=== PATIENT | female | born 1985 | race Caucasian/White ===

== ENCOUNTER 2018-12-07 09:01 | Inpatient (IN) | payer OTHER ==
[2018-12-07] MEDS ORDERED: Sodium Chloride 0.9% 10 ML Syringe FLUSH PRN (09:35)
[2018-12-07] MEDS ORDERED: Nalbuphine 20 MG/ML 1 ML Syringe IVPUSH PRN (09:35)
[2018-12-07] MEDS ORDERED: Ampicillin 2 GM in Sodium Chloride 0.9% 100 ML IV ONE (09:35)
[2018-12-07] MEDS ORDERED: Oxytocin/Lactated Ringers 10 UNIT/1,000 ML BAG IV SCH ×2 (09:45)
[2018-12-07] MEDS ORDERED: fentaNYL 100 MCG/2 ML SDV EPIDUR PRN (10:20)
[2018-12-07] MEDS ORDERED: ePHEDrine 50 MG/ML SDV IVPUSH PRN (10:20)
[2018-12-07] MEDS ORDERED: fentaNYL/Bupivacaine-NS 2 MCG/ML-0.125%/PF 100 ML Bag EPIDUR PRN (10:20)
[2018-12-07] MEDS ORDERED: Ondansetron 4 MG/2 ML SDV IVPUSH PRN (10:20)
--- NOTE | 2018-12-07 10:26 | PCM.PREANE ---
Preanesthetic Assessment - Anesthesia/Transfusion/Family Hx Anesthesia History: Prior Anesthesia Reaction Type of Anesthesia Reaction: Excessive Nausea/Vomiting Family History of Anesthesia Reaction: No Transfusion History: No Prior Transfusion(s) Intubation History: Unknown - Review of Systems General: No Symptoms Pulmonary: No Symptoms Cardiovascular: No Symptoms Gastrointestinal: No Symptoms (GERD) Neurological: No Symptoms Other: Reports: None - Physical Assessment NPO Status Date: 12/07/18 NPO Status Time: 06:15 Pulse: 83 O2 Sat by Pulse Oximetry: 99 Respiratory Rate: 16 Blood Pressure: 114/77 Temperature: 37.1 C Height: 1.57 m Weight: 79.832 kg ASA Class: 2 Mental Status: Alert & Oriented x3 Airway Class: Mallampati = 2 Dentition: Reports: Normal Dentition (upper and lower permanant retainer), Caries Thyro-Mental Finger Breadths: 3 Mouth Opening Finger Breadths: 3 ROM/Head Extension: Full Lungs: Clear to Auscultation, Normal Respiratory Effort Cardiovascular: Regular Rate, Regular Rhythm, No Murmurs - Lab Values: Laboratory Last Values WBC 9.48 K/mm3 (3.98-10.04) 12/07/18 09:54 RBC 3.67 M/mm3 (3.98-5.22) L 12/07/18 09:54 Hgb 11.5 gm/L (11.2-15.7) D 12/07/18 09:54 Hct 34.7 % (34.1-44.9) 12/07/18 09:54 MCV 94.6 fl (79.4-94.8) 12/07/18 09:54 MCH 31.3 pg (25.6-32.2) 12/07/18 09:54 MCHC 33.1 g/dl (32.2-35.5) 12/07/18 09:54 RDW Std Deviation 45.6 fL (36.4-46.3) 12/07/18 09:54 Plt Count 297 K/mm3 (182-369) 12/07/18 09:54 MPV 10.3 fl (9.4-12.3) 12/07/18 09:54 Neut % (Auto) 61.1 % (34.0-71.1) 12/07/18 09:54 Lymph % (Auto) 29.3 % (19.3-51.7) 12/07/18 09:54 [place] % (Auto) 8.2 % (4.7-12.5) 12/07/18 09:54 Eos % (Auto) 0.6 (0.7-5.8) L 12/07/18 09:54 Baso % (Auto) 0.2 % (0.1-1.2) 12/07/18 09:54 Neut # (Auto) 5.78 K/mm3 (1.56-6.13) 12/07/18 09:54 Lymph # (Auto) 2.78 K/mm3 (1.18-3.74) 12/07/18 09:54 [place] # (Auto) 0.78 K/mm3 (0.24-0.36) H 12/07/18 09:54 Eos # (Auto) 0.06 K/mm3 (0.04-0.36) 12/07/18 09:54 Baso # (Auto) 0.02 K/mm3 (0.01-0.08) 12/07/18 09:54 Above labs reviewed and noted and within acceptable ranges to proceed with epidural if desired. 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: - Past Surgical History HEENT Surgical History: Reports: Tonsillectomy, Other (See Below) - SUBSTANCE USE Smoking Status *Q: Never Smoker Second Hand Smoke Exposure: No Recreational Drug Use History: No - HOME MEDS Home Medications: Home Meds Vits #93/Iron Fum/FA [ Formula Tablet] 12/07/18 [History] - CURRENT (IN HOUSE) MEDS Current Meds: Current Medications Ampicillin Sodium 1 gm/ Sodium (Chloride) 100 mls @ 200 mls/hr IV Q4H TRISH Lactated Ringer's (Ringers, Lactated) 1,000 mls @ 100 mls/hr IV ASDIRECTED TRISH Oxytocin/Lactated Ringer's (Pitocin In Lr 10 Units/1,000 Ml) 10 unit in 1,000 mls @ 500 mls/hr IV .CONTINUOUS TRISH Oxytocin/Lactated Ringer's (Pitocin In Lr 10 Units/1,000 Ml) 10 unit in 1,000 mls @ 12 mls/hr IV TITRATE TRISH; Protocol Nalbuphine HCl (Nubain) 10 mg IVPUSH Q2H PRN PRN Reason: pain Sodium Chloride (Saline Flush) 10 ml FLUSH ASDIRECTED PRN PRN Reason: Keep Vein Open Discontinued Medications Ampicillin Sodium 2 gm/ Sodium (Chloride) 100 mls @ 200 mls/hr IV ONETIME ONE Stop: 12/07/18 10:04
[2018-12-07] MEDS ORDERED: Phenylephrine 1 MG in Sodium Chloride 0.9% 10 ML IV SCH (10:30)
[2018-12-07] MEDS: Lactated Ringers 1,000 ML IV SCH ×4 (10:46→18:11)
[2018-12-07] MEDS: Ampicillin 1 GM in Sodium Chloride 0.9% 100 ML IV SCH (14:57)
--- NOTE | 2018-12-07 16:51 | PCM.LDHP ---
L&D History of Present Illness - General Date of Service: 12/07/18 Admit Problem/Dx: Patient Status Order with Admit Dx/Problem 12/07/18 09:35 Patient Status [ADT] Routine Admission Diagnosis/Problem Admission Diagnosis/Problem Source of Information: Patient History Limitations: Reports: No Limitations - History of Present Illness Introduction:: 33 year old female at 38w5d here with SROM clear fluid at about 8 am. PNC with myself without complications. - Related Data Allergies/Adverse Reactions: Allergies Allergy/AdvReac Type Severity Reaction Status Date / Time No Known Allergies Allergy Verified 12/07/18 09:08 Home Medications: Home Meds Vits #93/Iron Fum/FA [ Formula Tablet] 1 tab PO DAILY 12/07/18 [History] Past Medical History [employer] History: Reports: - Past Surgical History HEENT Surgical History: Reports: Tonsillectomy, Other (See Below) Social & Family History - Family History Family Medical History: Noncontributory - Tobacco Use Smoking Status *Q: Never Smoker Second Hand Smoke Exposure: No - Caffeine Use Caffeine Use: Reports: None - Recreational Drug Use Recreational Drug Use: No H&P Review of Systems - Review of Systems: Review Of Systems: See Below General: Reports: No Symptoms HEENT: Reports: No Symptoms Pulmonary: Reports: No Symptoms Cardiovascular: Reports: No Symptoms Gastrointestinal: Reports: No Symptoms Genitourinary: Reports: No Symptoms Musculoskeletal: Reports: No Symptoms Skin: Reports: No Symptoms Psychiatric: Reports: No Symptoms Neurological: Reports: No Symptoms Hematologic/Lymphatic: Reports: No Symptoms Immunologic: Reports: No Symptoms L&D Exam - Exam Exam: See Below - Vital Signs Vital Signs: Last Vital Signs Temp 37.1 C 12/07/18 10:28 Pulse 83 12/07/18 10:28 Resp 16 12/07/18 10:28 BP 114/77 12/07/18 10:28 Pulse Ox 99 12/07/18 10:28 Weight: 79.832 kg - OB Specific Contraction Intensity: Moderate to Strong Movement: Active Heart Tones: Present Heart Rate (FHR) Variability: Moderate (6-25 bmp) Presentation: Vertex - Morales Score Morales Score Cervix Position: Anterior Morales Score Consistency: Soft Morales Score Effacement: 51-70% Morales Score Dilation: 1-2 cm Morales Score Infant's Station: -2 Morales Score Total: 8 - Exam General: Alert, Oriented HEENT: PERRLA, Conjunctiva Clear, EACs Clear, EOMI, Hearing Intact, Mucosa Moist & [place], Nares Patent, Normal Nasal Septum, Posterior Pharynx Clear, TMs Clear Neck: Supple, Trachea Midline Lungs: Clear to Auscultation, Normal Respiratory Effort Cardiovascular: Regular Rate, Regular Rhythm GI/Abdominal Exam: Normal Bowel Sounds, Soft, Non-Tender, No Organomegaly, No Distention, No Abnormal Bruit, No Mass, Pelvis Stable Back Exam: Normal Inspection, Full Range of Motion Extremities: Normal Inspection, Normal Range of Motion, Non-Tender, No Pedal Edema, Normal Capillary Refill Skin: Warm, Dry, Intact Neurological: Cranial Nerves Intact, Reflexes Equal Bilateral Psychiatric: Alert, Normal Affect, Normal Mood - Patient Data Lab Results Last 24 hrs: Laboratory Results - last 24 hr 12/07/18 Range/Units 09:54 WBC 9.48 (3.98-10.04) K/mm3 RBC 3.67 L (3.98-5.22) M/mm3 Hgb 11.5 D (11.2-15.7) gm/L Hct 34.7 (34.1-44.9) % MCV 94.6 (79.4-94.8) fl MCH 31.3 (25.6-32.2) pg MCHC 33.1 (32.2-35.5) g/dl RDW Std Deviation 45.6 (36.4-46.3) fL Plt Count 297 (182-369) K/mm3 MPV 10.3 (9.4-12.3) fl Neut % (Auto) 61.1 (34.0-71.1) % Lymph % (Auto) 29.3 (19.3-51.7) % [place] % (Auto) 8.2 (4.7-12.5) % Eos % (Auto) 0.6 L (0.7-5.8) Baso % (Auto) 0.2 (0.1-1.2) % Neut # (Auto) 5.78 (1.56-6.13) K/mm3 Lymph # (Auto) 2.78 (1.18-3.74) K/mm3 [place] # (Auto) 0.78 H (0.24-0.36) K/mm3 Eos # (Auto) 0.06 (0.04-0.36) K/mm3 Baso # (Auto) 0.02 (0.01-0.08) K/mm3 Result Diagrams: 12/07/18 09:54 Problem List Initiated/Reviewed/Updated: Yes Orders Last 24hrs: Active Orders 24 hr Category Date Time Status Patient Status [ADT] Routine ADT 12/07/18 09:35 Active Activity as Tolerated [RC] PFP Care 12/07/18 09:35 Active Communication Order [RC] ASDIRECTED Care 12/07/18 09:35 Active Notify Provider [RC] ASDIRECTED Care 12/07/18 10:20 Active Notify Provider [RC] PFP Care 12/07/18 09:35 Active Notify Provider [RC] PRN Care 12/07/18 09:35 Active Oxygen Therapy [RC] ASDIRECTED Care 12/07/18 10:20 Active Peripheral IV Care [RC] . DIRECTED Care 12/07/18 09:36 Active Pulse Oximetry [RC] ASDIRECTED Care 12/07/18 10:20 Active Pump Management, Intrathecal [RC] ASDIRECTED Care 12/07/18 09:40 Active Urinary Catheter Assessment [RC] ASDIRECTED Care 12/07/18 09:35 Active Vital Signs [RC] PER UNIT ROUTINE Care 12/07/18 09:35 Active Regular Diet [DIET] Diet 12/07/18 Breakfast Active BLOOD BANK HOLD SPECIMEN [BBK] Stat Lab 12/07/18 09:35 Ordered RAPID PLASMA REAGIN,RPR [CHEM] Routine Lab 12/07/18 09:54 Received Ampicillin 1 gm Med 12/07/18 13:00 Active Sodium Chloride 0.9% [Normal Saline] 100 ml IV Q4H Lactated Ringers [Ringers, Lactated] 1,000 ml Med 12/07/18 09:45 Active IV ASDIRECTED Nalbuphine [Nubain] Med 12/07/18 09:35 Active 10 mg IVPUSH Q2H PRN Ondansetron [Zofran] Med 12/07/18 10:20 Active 4 mg IVPUSH ONETIME PRN Oxytocin/Lactated Ringers [Pitocin in LR 10 Units/1,000 Med 12/07/18 09:45 Active ML] 10 unit in 1,000 ml IV .CONTINUOUS Oxytocin/Lactated Ringers [Pitocin in LR 10 Units/1,000 Med 12/07/18 09:45 Active ML] 10 unit in 1,000 ml IV TITRATE Phenylephrine [Bk-Synephrine] 1 mg Med 12/07/18 10:30 Active Sodium Chloride 0.9% [Normal Saline] 10 ml IV TITRATE Sodium Chloride 0.9% [Saline Flush] Med 12/07/18 09:35 Active 10 ml FLUSH ASDIRECTED PRN ePHEDrine [ePHEDrine sulfate] Med 12/07/18 10:20 Active 5 mg IVPUSH ASDIRECTED PRN fentaNYL [Sublimaze] Med 12/07/18 10:20 Active 100 mcg EPIDUR Q3H PRN fentaNYL/Bupivacaine/NS/PF [ktzpfEWP-Ntkaf-LU 2 MCG/ML- Med 12/07/18 10:20 Active 0.125%] 100 ml EPIDUR ASDIRECTED PRN Electronic Heart Tones Ext w TOCO [WOMSER] Oth 12/07/18 09:35 Ordered Routine Electronic Heart Tones Internal [WOMSER] Per Unit Oth 12/07/18 09:35 Ordered Routine Peripheral IV Insertion Adult [OM.PC] Routine Oth 12/07/18 09:35 Ordered Resuscitation Status Routine Resus Stat 12/07/18 09:35 Ordered Medication Orders Ephedrine Sulfate (Ephedrine Sulfate) 5 mg IVPUSH ASDIRECTED PRN PRN Reason: Hypotension Stop: 12/07/18 23:00 Fentanyl (Sublimaze) 100 mcg EPIDUR Q3H PRN PRN Reason: Pain Stop: 12/07/18 23:00 Fentanyl/Bupivacaine HCl (Ukdyuagg-Cfalj-Xi 2 Mcg/Ml-0.125%) 100 ml EPIDUR ASDIRECTED PRN PRN Reason: Pain Stop: 12/07/18 23:00 Ampicillin Sodium 1 gm/ Sodium (Chloride) 100 mls @ 200 mls/hr IV Q4H [facility] Last Admin: 12/07/18 14:57 Dose: 200 mls/hr Lactated Ringer's (Ringers, Lactated) 1,000 mls @ 100 mls/hr IV ASDIRECTED [facility] Last Admin: 12/07/18 16:43 Dose: 100 mls/hr Infusion: 12/07/18 16:43 Dose: 100 mls/hr Admin: 12/07/18 16:42 Dose: 100 mls/hr Infusion: 12/07/18 16:42 Dose: 100 mls/hr Admin: 12/07/18 10:46 Dose: 100 mls/hr Oxytocin/Lactated Ringer's (Pitocin In Lr 10 Units/1,000 Ml) 10 unit in 1,000 mls @ 500 mls/hr IV .CONTINUOUS TRISH Oxytocin/Lactated Ringer's (Pitocin In Lr 10 Units/1,000 Ml) 10 unit in 1,000 mls @ 12 mls/hr IV TITRATE TRISH; Protocol Last Titration: 12/07/18 16:22 Dose: 7 munits/min, 42 mls/hr Titration: 12/07/18 15:33 Dose: 5 munits/min, 30 mls/hr Titration: 12/07/18 15:03 Dose: 10 munits/min, 60 mls/hr Titration: 12/07/18 13:00 Dose: 8 munits/min, 48 mls/hr Titration: 12/07/18 12:00 Dose: 6 munits/min, 36 mls/hr Titration: 12/07/18 11:30 Dose: 4 munits/min, 24 mls/hr Admin: 12/07/18 10:48 Dose: 2 munits/min, 12 mls/hr Phenylephrine HCl 1 mg/ Sodium (Chloride) 10.1 mls @ 1 mls/sec IV TITRATE TRISH; Protocol Stop: 12/07/18 23:00 Nalbuphine HCl (Nubain) 10 mg IVPUSH Q2H PRN PRN Reason: pain Ondansetron HCl (Zofran) 4 mg IVPUSH ONETIME PRN PRN Reason: Nausea/Vomiting Stop: 12/07/18 23:00 Sodium Chloride (Saline Flush) 10 ml FLUSH ASDIRECTED PRN PRN Reason: Keep Vein Open Assessment/Plan Comment:: Term SROM. Augment with pitocin. Anticipate unless otherwise indicated.
--- NOTE | 2018-12-07 19:34 | PCM.DEL ---
L & D Note - General Info Date of Service: 12/07/18 Mother's Due Date: 12/16/18 - Delivery Note Labor: Spontaneous, Augmented by Oxytocin Delivery Outcome: Livebirth (Male liveborn JEVON, nuchal cord 1, 12/07/18 at 1907 hrs. under epidural anesthesia over midline first-degree laceration. Weight 3220 g/7 pounds 1.6 ounces Apgars 8/9.) Delivery Method: Spontaneous Vaginal Delivery-Single Delivery Mode: Spontaneous Presentation: Left Occiput Anterior (JEVON) Nuchal Cord: Present (Times one tight reduced over the head without difficulty) Prep: Povidone-Iodine (Betadine Anesthesia Type: Combined Spinal Epidural Amniotic Fluid Description: Clear Episiotomy Type: None Laceration: 1st Degree Suture type: Other (Monocryl) Suture size: 3-0 (Times one) Placenta: Intact, Spontaneous (12/07/18 at 1910 hrs.) Cord: 3 Vessels Estimated Blood Loss: 250 Resuscitation Needed: No : Suctioned, Bulb Syringe, Stimulated, Warmed, Lizella Used, Warmer Used Provider: Shen Orozco Score 1 min: 8 Score 5 min: 9 - General Info Date of Service: 12/07/18 Functional Status: Reports: Pain Controlled - Review of Systems General: Reports: No Symptoms HEENT: Reports: No Symptoms Pulmonary: Reports: No Symptoms Cardiovascular: Reports: No Symptoms Gastrointestinal: Reports: No Symptoms Genitourinary: Reports: No Symptoms Musculoskeletal: Reports: No Symptoms Skin: Reports: No Symptoms Neurological: Reports: No Symptoms Psychiatric: Reports: No Symptoms - Patient Data Vitals - Most Recent: Last Vital Signs Temp 98.8 F 12/07/18 10:28 Pulse 83 12/07/18 10:28 Resp 16 12/07/18 10:28 BP 114/77 12/07/18 10:28 Pulse Ox 99 12/07/18 10:28 Weight - Most Recent: 176 lb I&O - Last 24 Hours: Intake & Output 12/07/18 12/07/18 12/07/18 06:59 14:59 22:59 Intake Total 100 2000 Balance 100 2000 Lab Results Last 24 Hours: Laboratory Results - last 24 hr 12/07/18 12/07/18 Range/Units 09:54 09:54 WBC 9.48 (3.98-10.04) K/mm3 RBC 3.67 L (3.98-5.22) M/mm3 Hgb 11.5 D (11.2-15.7) gm/L Hct 34.7 (34.1-44.9) % MCV 94.6 (79.4-94.8) fl MCH 31.3 (25.6-32.2) pg MCHC 33.1 (32.2-35.5) g/dl RDW Std Deviation 45.6 (36.4-46.3) fL Plt Count 297 (182-369) K/mm3 MPV 10.3 (9.4-12.3) fl Neut % (Auto) 61.1 (34.0-71.1) % Lymph % (Auto) 29.3 (19.3-51.7) % [place] % (Auto) 8.2 (4.7-12.5) % Eos % (Auto) 0.6 L (0.7-5.8) Baso % (Auto) 0.2 (0.1-1.2) % Neut # (Auto) 5.78 (1.56-6.13) K/mm3 Lymph # (Auto) 2.78 (1.18-3.74) K/mm3 [place] # (Auto) 0.78 H (0.24-0.36) K/mm3 Eos # (Auto) 0.06 (0.04-0.36) K/mm3 Baso # (Auto) 0.02 (0.01-0.08) K/mm3 RPR Non-reactive (NONREACTIVE) Med Orders - Current: Current Medications Ephedrine Sulfate (Ephedrine Sulfate) 5 mg IVPUSH ASDIRECTED PRN PRN Reason: Hypotension Stop: 12/07/18 23:00 Fentanyl (Sublimaze) 100 mcg EPIDUR Q3H PRN PRN Reason: Pain Stop: 12/07/18 23:00 Last Admin: 12/07/18 18:16 Dose: 100 mcg Fentanyl/Bupivacaine HCl (Rwtfugol-Vevcj-Tk 2 Mcg/Ml-0.125%) 100 ml EPIDUR ASDIRECTED PRN PRN Reason: Pain Stop: 12/07/18 23:00 Last Admin: 12/07/18 18:15 Dose: 100 ml Ampicillin Sodium 1 gm/ Sodium (Chloride) 100 mls @ 200 mls/hr IV Q4H TRISH Last Admin: 12/07/18 14:57 Dose: 200 mls/hr Lactated Ringer's (Ringers, Lactated) 1,000 mls @ 100 mls/hr IV ASDIRECTED TRISH Last Admin: 12/07/18 18:11 Dose: 100 mls/hr Oxytocin/Lactated Ringer's (Pitocin In Lr 10 Units/1,000 Ml) 10 unit in 1,000 mls @ 500 mls/hr IV .CONTINUOUS TRISH Oxytocin/Lactated Ringer's (Pitocin In Lr 10 Units/1,000 Ml) 10 unit in 1,000 mls @ 12 mls/hr IV TITRATE TRISH; Protocol Last Titration: 12/07/18 16:22 Dose: 7 munits/min, 42 mls/hr Phenylephrine HCl 1 mg/ Sodium (Chloride) 10.1 mls @ 1 mls/sec IV TITRATE TRISH; Protocol Stop: 12/07/18 23:00 Nalbuphine HCl (Nubain) 10 mg IVPUSH Q2H PRN PRN Reason: pain Ondansetron HCl (Zofran) 4 mg IVPUSH ONETIME PRN PRN Reason: Nausea/Vomiting Stop: 12/07/18 23:00 Sodium Chloride (Saline Flush) 10 ml FLUSH ASDIRECTED PRN PRN Reason: Keep Vein Open Discontinued Medications Ampicillin Sodium 2 gm/ Sodium (Chloride) 100 mls @ 200 mls/hr IV ONETIME ONE Stop: 12/07/18 10:04 Last Admin: 12/07/18 10:45 Dose: 200 mls/hr - Exam General: Alert, Oriented HEENT: Pupils Equal, Mucous Membr. Moist/[place] Neck: Supple Lungs: Clear to Auscultation, Normal Respiratory Effort Cardiovascular: Regular Rate, Regular Rhythm GI/Abdominal Exam: Normal Bowel Sounds, Soft, Non-Tender Extremities: Normal Inspection, Normal Range of Motion, Non-Tender, No Pedal Edema, Normal Capillary Refill Skin: Warm, Dry, Intact Psy/Mental Status: Alert, Normal Affect, Normal Mood - Problem List & Annotations (1) Cord around neck, with compression, complicating labor and delivery, delivered SNOMED Code(s): 323116483, 882011436 Code(s): O69.1XX0 - LABOR AND DELIVERY COMP BY CORD AROUND NECK, W COMPRSN, UNSP Status: Acute Current Visit: Yes (2) First degree perineal laceration during delivery SNOMED Code(s): 118603287 Code(s): O70.0 - FIRST DEGREE PERINEAL LACERATION DURING DELIVERY Status: Acute Current Visit: Yes (3) 38 weeks gestation of SNOMED Code(s): 81894066 Code(s): Z3A.38 - 38 WEEKS GESTATION OF Status: Acute Current Visit: Yes - Problem List Review Problem List Initiated/Reviewed/Updated: No - Assessment Assessment:: On transvaginal delivery see above note - Plan Plan:: Term SROM. Augment with pitocin. Anticipate unless otherwise indicated.
[2018-12-07] MEDS ORDERED: Acetaminophen 325 MG Tab PO PRN (20:21)
[2018-12-07] MEDS ORDERED: Witch Hazel Medicated Pads 40/Jar TOP PRN (20:21)
[2018-12-07] MEDS ORDERED: Lanolin 100% Cream 7 GM Tube TOP PRN (20:21)
[2018-12-07] MEDS ORDERED: Docusate Sodium 100 MG Cap PO PRN (20:21)
[2018-12-07] MEDS ORDERED: Benzocaine/Menthol 20%-0.5% Spray 56 GM Canister TOP PRN (20:21)
[2018-12-07] MEDS: Ibuprofen 600 MG Tab PO PRN (21:20)
[2018-12-08] MEDS: Ampicillin 1 GM in Sodium Chloride 0.9% 100 ML IV SCH (00:30)
[2018-12-08] MEDS: Ibuprofen 600 MG Tab PO PRN ×2 (03:17→13:53)
--- NOTE | 2018-12-08 08:43 | PCM.SN ---
- Free Text/Narrative Note: day 1 No heavy vaginal bleeding no leg cramping uterus involuting normally probably home tomorrow.
[2018-12-09] MEDS: Ibuprofen 600 MG Tab PO PRN (02:49)
[2018-12-09 08:01] VITALS: BP 108/64
--- NOTE | 2018-12-09 10:49 | PCM.DCSUM1 ---
Discharge Summary - Hospital Course Free Text/Narrative:: [facility] LIVE L/D Delivery Note Patient Name: ALBERT VILLEGAS Date of : 89 Patient Status: Inpatient Attending Provider: Ashanti Jackson Date: 12/07/18 19:29 Initialization Date: 12/07/18 19:29 L & D Note - General Info Date of Service: 12/07/18 Mother's Due Date: 12/16/18 - Delivery Note Labor: Spontaneous, Augmented by Oxytocin Delivery Outcome: Livebirth (Male liveborn JEVON, nuchal cord 1, 12/07/18 at 1907 hrs. under epidural anesthesia over midline first-degree laceration. Weight 3220 g/7 pounds 1.6 ounces Apgars 8/9.) Infant Delivery Method: Spontaneous Vaginal Delivery-Single Infant Delivery Mode: Spontaneous Presentation: Left Occiput Anterior (JEVON) Nuchal Cord: Present (Times one tight reduced over the head without difficulty) Prep: Povidone-Iodine (Betadine Anesthesia Type: Combined Spinal Epidural Amniotic Fluid Description: Clear Episiotomy Type: None Laceration: 1st Degree Suture type: Other (Monocryl) Suture size: 3-0 (Times one) Placenta: Intact, Spontaneous (12/07/18 at 1910 hrs.) Cord: 3 Vessels Estimated Blood Loss: 250 Resuscitation Needed: No Benedict: Suctioned, Bulb Syringe, Stimulated, Warmed, [place] Used, Warmer Used Provider: Shen Orozco Score 1 min: 8 Score 5 min: 9 - General Info Date of Service: 12/07/18 Functional Status: Reports: Pain Controlled - Review of Systems General: Reports: No Symptoms HEENT: Reports: No Symptoms Pulmonary: Reports: No Symptoms Cardiovascular: Reports: No Symptoms Gastrointestinal: Reports: No Symptoms Genitourinary: Reports: No Symptoms Musculoskeletal: Reports: No Symptoms Skin: Reports: No Symptoms Neurological: Reports: No Symptoms Psychiatric: Reports: No Symptoms - Patient Data Vitals - Most Recent: Last Vital Signs Temp 98.8 F 12/07/18 10:28 Pulse 83 12/07/18 10:28 Resp 16 12/07/18 10:28 BP 114/77 12/07/18 10:28 Pulse Ox 99 12/07/18 10:28 Weight - Most Recent: 176 lb I&O - Last 24 Hours: Intake & Output 12/07/18 12/07/18 12/07/18 06:59 14:59 22:59 Intake Total 100 2000 Balance 100 2000 Lab Results Last 24 Hours: Laboratory Results - last 24 hr 12/07/18 12/07/18 Range/Units 09:54 09:54 WBC 9.48 (3.98-10.04) K/mm3 RBC 3.67 L (3.98-5.22) M/mm3 Hgb 11.5 D (11.2-15.7) gm/L Hct 34.7 (34.1-44.9) % MCV 94.6 (79.4-94.8) fl MCH 31.3 (25.6-32.2) pg MCHC 33.1 (32.2-35.5) g/dl RDW Std Deviation 45.6 (36.4-46.3) fL Plt Count 297 (182-369) K/mm3 MPV 10.3 (9.4-12.3) fl Neut % (Auto) 61.1 (34.0-71.1) % Lymph % (Auto) 29.3 (19.3-51.7) % [place] % (Auto) 8.2 (4.7-12.5) % Eos % (Auto) 0.6 L (0.7-5.8) Baso % (Auto) 0.2 (0.1-1.2) % Neut # (Auto) 5.78 (1.56-6.13) K/mm3 Lymph # (Auto) 2.78 (1.18-3.74) K/mm3 [place] # (Auto) 0.78 H (0.24-0.36) K/mm3 Eos # (Auto) 0.06 (0.04-0.36) K/mm3 Baso # (Auto) 0.02 (0.01-0.08) K/mm3 RPR Non-reactive (NONREACTIVE) Med Orders - Current: Current Medications Ephedrine Sulfate (Ephedrine Sulfate) 5 mg IVPUSH ASDIRECTED PRN PRN Reason: Hypotension Stop: 12/07/18 23:00 Fentanyl (Sublimaze) 100 mcg EPIDUR Q3H PRN PRN Reason: Pain Stop: 12/07/18 23:00 Last Admin: 12/07/18 18:16 Dose: 100 mcg Fentanyl/Bupivacaine HCl (Uphypann-Kigsc-Fn 2 Mcg/Ml-0.125%) 100 ml EPIDUR ASDIRECTED PRN PRN Reason: Pain Stop: 12/07/18 23:00 Last Admin: 12/07/18 18:15 Dose: 100 ml Ampicillin Sodium 1 gm/ Sodium (Chloride) 100 mls @ 200 mls/hr IV Q4H TRISH Last Admin: 12/07/18 14:57 Dose: 200 mls/hr Lactated Ringer's (Ringers, Lactated) 1,000 mls @ 100 mls/hr IV ASDIRECTED TRISH Last Admin: 12/07/18 18:11 Dose: 100 mls/hr Oxytocin/Lactated Ringer's (Pitocin In Lr 10 Units/1,000 Ml) 10 unit in 1,000 mls @ 500 mls/hr IV .CONTINUOUS TRISH Oxytocin/Lactated Ringer's (Pitocin In Lr 10 Units/1,000 Ml) 10 unit in 1,000 mls @ 12 mls/hr IV TITRATE TRISH; Protocol Last Titration: 12/07/18 16:22 Dose: 7 munits/min, 42 mls/hr Phenylephrine HCl 1 mg/ Sodium (Chloride) 10.1 mls @ 1 mls/sec IV TITRATE TRISH; Protocol Stop: 12/07/18 23:00 Nalbuphine HCl (Nubain) 10 mg IVPUSH Q2H PRN PRN Reason: pain Ondansetron HCl (Zofran) 4 mg IVPUSH ONETIME PRN PRN Reason: Nausea/Vomiting Stop: 12/07/18 23:00 Sodium Chloride (Saline Flush) 10 ml FLUSH ASDIRECTED PRN PRN Reason: Keep Vein Open Discontinued Medications Ampicillin Sodium 2 gm/ Sodium (Chloride) 100 mls @ 200 mls/hr IV ONETIME ONE Stop: 12/07/18 10:04 Last Admin: 12/07/18 10:45 Dose: 200 mls/hr - Exam General: Alert, Oriented HEENT: Pupils Equal, Mucous Membr. Moist/[place] Neck: Supple Lungs: Clear to Auscultation, Normal Respiratory Effort Cardiovascular: Regular Rate, Regular Rhythm GI/Abdominal Exam: Normal Bowel Sounds, Soft, Non-Tender Extremities: Normal Inspection, Normal Range of Motion, Non-Tender, No Pedal Edema, Normal Capillary Refill Skin: Warm, Dry, Intact Psy/Mental Status: Alert, Normal Affect, Normal Mood - Problem List & Annotations (1) Cord around neck, with compression, complicating labor and delivery, delivered SNOMED Code(s): 861477530, 495585060 Code(s): O69.1XX0 - LABOR AND DELIVERY COMP BY CORD AROUND NECK, W COMPRSN, UNSP Status: Acute Current Visit: Yes (2) First degree perineal laceration during delivery SNOMED Code(s): 798662171 Code(s): O70.0 - FIRST DEGREE PERINEAL LACERATION DURING DELIVERY Status: Acute Current Visit: Yes (3) 38 weeks gestation of SNOMED Code(s): 07039087 Code(s): Z3A.38 - 38 WEEKS GESTATION OF Status: Acute Current Visit: Yes - Problem List Review Problem List Initiated/Reviewed/Updated: No - Assessment Assessment:: On transvaginal delivery see above note - Plan Plan:: Term SROM. Augment with pitocin. Anticipate unless otherwise indicated. HPI Initial Comments: [facility] LIVE L/D Delivery Note Patient Name: ALBERT VILLEGAS Date of : 89 Patient Status: Inpatient Attending Provider: Ashanti Jackson Date: 12/07/18 19:29 Initialization Date: 12/07/18 19:29 L & D Note - General Info Date of Service: 12/07/18 Mother's Due Date: 12/16/18 - Delivery Note Labor: Spontaneous, Augmented by Oxytocin Delivery Outcome: Livebirth (Male liveborn JEVON, nuchal cord 1, 12/07/18 at 1907 hrs. under epidural anesthesia over midline first-degree laceration. Weight 3220 g/7 pounds 1.6 ounces Apgars 8/9.) Infant Delivery Method: Spontaneous Vaginal Delivery-Single Delivery Mode: Spontaneous Presentation: Left Occiput Anterior (JEVON) Nuchal Cord: Present (Times one tight reduced over the head without difficulty) Prep: Povidone-Iodine (Betadine Anesthesia Type: Combined Spinal Epidural Amniotic Fluid Description: Clear Episiotomy Type: None Laceration: 1st Degree Suture type: Other (Monocryl) Suture size: 3-0 (Times one) Placenta: Intact, Spontaneous (12/07/18 at 1910 hrs.) Cord: 3 Vessels Estimated Blood Loss: 250 Resuscitation Needed: No : Suctioned, Bulb Syringe, Stimulated, Warmed, [place] Used, Warmer Used Provider: Shen Orozco Score 1 min: 8 Score 5 min: 9 - General Info Date of Service: 12/07/18 Functional Status: Reports: Pain Controlled - Review of Systems General: Reports: No Symptoms HEENT: Reports: No Symptoms Pulmonary: Reports: No Symptoms Cardiovascular: Reports: No Symptoms Gastrointestinal: Reports: No Symptoms Genitourinary: Reports: No Symptoms Musculoskeletal: Reports: No Symptoms Skin: Reports: No Symptoms Neurological: Reports: No Symptoms Psychiatric: Reports: No Symptoms - Patient Data Vitals - Most Recent: Last Vital Signs Temp 98.8 F 12/07/18 10:28 Pulse 83 12/07/18 10:28 Resp 16 12/07/18 10:28 BP 114/77 12/07/18 10:28 Pulse Ox 99 12/07/18 10:28 Weight - Most Recent: 176 lb I&O - Last 24 Hours: Intake & Output 12/07/18 12/07/18 12/07/18 06:59 14:59 22:59 Intake Total 100 2000 Balance 100 2000 Lab Results Last 24 Hours: Laboratory Results - last 24 hr 12/07/18 12/07/18 Range/Units 09:54 09:54 WBC 9.48 (3.98-10.04) K/mm3 RBC 3.67 L (3.98-5.22) M/mm3 Hgb 11.5 D (11.2-15.7) gm/L Hct 34.7 (34.1-44.9) % MCV 94.6 (79.4-94.8) fl MCH 31.3 (25.6-32.2) pg MCHC 33.1 (32.2-35.5) g/dl RDW Std Deviation 45.6 (36.4-46.3) fL Plt Count 297 (182-369) K/mm3 MPV 10.3 (9.4-12.3) fl Neut % (Auto) 61.1 (34.0-71.1) % Lymph % (Auto) 29.3 (19.3-51.7) % [place] % (Auto) 8.2 (4.7-12.5) % Eos % (Auto) 0.6 L (0.7-5.8) Baso % (Auto) 0.2 (0.1-1.2) % Neut # (Auto) 5.78 (1.56-6.13) K/mm3 Lymph # (Auto) 2.78 (1.18-3.74) K/mm3 [place] # (Auto) 0.78 H (0.24-0.36) K/mm3 Eos # (Auto) 0.06 (0.04-0.36) K/mm3 Baso # (Auto) 0.02 (0.01-0.08) K/mm3 RPR Non-reactive (NONREACTIVE) Med Orders - Current: Current Medications Ephedrine Sulfate (Ephedrine Sulfate) 5 mg IVPUSH ASDIRECTED PRN PRN Reason: Hypotension Stop: 12/07/18 23:00 Fentanyl (Sublimaze) 100 mcg EPIDUR Q3H PRN PRN Reason: Pain Stop: 12/07/18 23:00 Last Admin: 12/07/18 18:16 Dose: 100 mcg Fentanyl/Bupivacaine HCl (Zibizkpa-Ecfys-Yv 2 Mcg/Ml-0.125%) 100 ml EPIDUR ASDIRECTED PRN PRN Reason: Pain Stop: 12/07/18 23:00 Last Admin: 12/07/18 18:15 Dose: 100 ml Ampicillin Sodium 1 gm/ Sodium (Chloride) 100 mls @ 200 mls/hr IV Q4H TRISH Last Admin: 12/07/18 14:57 Dose: 200 mls/hr Lactated Ringer's (Ringers, Lactated) 1,000 mls @ 100 mls/hr IV ASDIRECTED TRISH Last Admin: 12/07/18 18:11 Dose: 100 mls/hr Oxytocin/Lactated Ringer's (Pitocin In Lr 10 Units/1,000 Ml) 10 unit in 1,000 mls @ 500 mls/hr IV .CONTINUOUS TRISH Oxytocin/Lactated Ringer's (Pitocin In Lr 10 Units/1,000 Ml) 10 unit in 1,000 mls @ 12 mls/hr IV TITRATE TRISH; Protocol Last Titration: 12/07/18 16:22 Dose: 7 munits/min, 42 mls/hr Phenylephrine HCl 1 mg/ Sodium (Chloride) 10.1 mls @ 1 mls/sec IV TITRATE TRISH; Protocol Stop: 12/07/18 23:00 Nalbuphine HCl (Nubain) 10 mg IVPUSH Q2H PRN PRN Reason: pain Ondansetron HCl (Zofran) 4 mg IVPUSH ONETIME PRN PRN Reason: Nausea/Vomiting Stop: 12/07/18 23:00 Sodium Chloride (Saline Flush) 10 ml FLUSH ASDIRECTED PRN PRN Reason: Keep Vein Open Discontinued Medications Ampicillin Sodium 2 gm/ Sodium (Chloride) 100 mls @ 200 mls/hr IV ONETIME ONE Stop: 12/07/18 10:04 Last Admin: 12/07/18 10:45 Dose: 200 mls/hr - Exam General: Alert, Oriented HEENT: Pupils Equal, Mucous Membr. Moist/[place] Neck: Supple Lungs: Clear to Auscultation, Normal Respiratory Effort Cardiovascular: Regular Rate, Regular Rhythm GI/Abdominal Exam: Normal Bowel Sounds, Soft, Non-Tender Extremities: Normal Inspection, Normal Range of Motion, Non-Tender, No Pedal Edema, Normal Capillary Refill Skin: Warm, Dry, Intact Psy/Mental Status: Alert, Normal Affect, Normal Mood - Problem List & Annotations (1) Cord around neck, with compression, complicating labor and delivery, delivered SNOMED Code(s): 644322500, 224667119 Code(s): O69.1XX0 - LABOR AND DELIVERY COMP BY CORD AROUND NECK, W COMPRSN, UNSP Status: Acute Current Visit: Yes (2) First degree perineal laceration during delivery SNOMED Code(s): 153741339 Code(s): O70.0 - FIRST DEGREE PERINEAL LACERATION DURING DELIVERY Status: Acute Current Visit: Yes (3) 38 weeks gestation of SNOMED Code(s): 24843726 Code(s): Z3A.38 - 38 WEEKS GESTATION OF Status: Acute Current Visit: Yes - Problem List Review Problem List Initiated/Reviewed/Updated: No - Assessment Assessment:: On transvaginal delivery see above note - Plan Plan:: Term SROM. Augment with pitocin. Anticipate unless otherwise indicated. Brief History: [facility] LIVE . L/D Delivery Note. Patient Name: ALBERT VILLEGAS Record Number: [id number]. Date of : Patient Status: Inpatient. Attending Provider: Ashanti Jacksonunt Number: [id number]. Date: 12/07/18 19:29Initialization Date: 12/07/18 19:29. L & D Note. - General Info. Date of Service: 12/07/18. Mother's Due Date: 12/16/18. - Delivery Note. Labor: Spontaneous, Augmented by Oxytocin. Delivery Outcome: Livebirth (Male liveborn JEVON, nuchal cord 1, at 1907 hrs. under epidural anesthesia over midline first-degree laceration. Weight 3220 g/7 pounds 1.6 ounces Apgars 8/9.). Infant Delivery Method: Spontaneous Vaginal Delivery-Single. Infant Delivery Mode: Spontaneous. Presentation: Left Occiput Anterior (JEVON). Nuchal Cord: Present (Times one tight reduced over the head without difficulty). Prep: Povidone-Iodine (Betadine. Anesthesia Type: Combined Spinal Epidural. Amniotic Fluid Description: Clear. Episiotomy Type: None. Laceration: 1st Degree. Suture type: Other (Monocryl). Suture size: 3-0 (Times one). Placenta : Intact, Spontaneous (12/07/18 at 1910 hrs.). Cord: 3 Vessels. Estimated Blood Loss: 250. Resuscitation Needed: No. Benedict: Suctioned, Bulb Syringe, Stimulated, Warmed, [place] Used, Warmer Used. Provider: Shen Orozco. Score 1 min: 8. Score 5 min: 9. - General Info. Date of Service: 12/07/18. Functional Status: Reports: Pain Controlled. - Review of Systems. General: Reports: No Symptoms. HEENT: Reports: No Symptoms. Pulmonary: Reports: No Symptoms. Cardiovascular: Reports: No Symptoms. Gastrointestinal: Reports: No Symptoms. Genitourinary: Reports: No Symptoms. Musculoskeletal: Reports: No Symptoms. Skin: Reports: No Symptoms. Neurological: Reports: No Symptoms. Psychiatric: Reports: No Symptoms. - Patient Data. Vitals - Most Recent: Last Vital Signs. Temp 98.8 F 12/07/18 10:28. Pulse 83 12/07/18 10:28. Resp 16 12/07/18 10:28. BP 114/77 10:28. Pulse Ox 99 12/07/18 10:28. Weight - Most Recent: 176 lb. I&O - Last 24 Hours: Intake & Output. 12/07/1904/. 06:5914:5922:59. Intake [id number]. [id number]. Lab Results Last 24 Hours: Laboratory Results - last 24 hr. 12/07/1904Range/Units. 09:5409:54. WBC 9.48 (3.98 -10.04) K/mm3. RBC 3.67 L (3.98-5.22) M/mm3. Hgb 11.5 D (11.2-15.7) gm/L. Hct 34.7 (34.1-44.9) %. MCV 94.6 (79.4-94.8) fl. MCH 31.3 (25.6-32.2) pg. MCHC 33.1 (32.2-35.5) g/dl. RDW Std Deviation 45.6 (36.4-46.3) fL. Plt Count 297 (182-369) K/mm3. MPV 10.3 (9.4-12.3) fl. Neut % (Auto) 61.1 (34.0- 71.1) %. Lymph % (Auto) 29.3 (19.3-51.7) %. [place] % (Auto) 8.2 (4.7-12.5) % . Eos % (Auto) 0.6 L (0.7-5.8). Baso % (Auto) 0.2 (0.1-1.2) %. Neut # (Auto ) 5.78 (1.56-6.13) K/mm3. Lymph # (Auto) 2.78 (1.18-3.74) K/mm3. [place] # ( Auto) 0.78 H (0.24-0.36) K/mm3. Eos # (Auto) 0.06 (0.04-0.36) K/mm3. Baso # (Auto) 0.02 (0.01-0.08) K/mm3. RPR Non-reactive (NONREACTIVE). Med Orders - Current: Current Medications. Ephedrine Sulfate (Ephedrine Sulfate) 5 mg IVPUSH ASDIRECTED PRN. PRN Reason: Hypotension. Stop: 12/07/18 23:00. Fentanyl (Sublimaze) 100 mcg EPIDUR Q3H PRN. PRN Reason: Pain. Stop: 23:00. Last Admin: 12/07/18 18:16 Dose: 100 mcg. Fentanyl/Bupivacaine HCl (Ldeupqig-Djldw-Ca 2 Mcg/Ml-0.125%) 100 ml EPIDUR ASDIRECTED PRN. PRN Reason: Pain. Stop: 12/07/18 23:00. Last Admin: 12/07/18 18:15 Dose: 100 ml. Ampicillin Sodium 1 gm/ Sodium (Chloride) 100 mls @ 200 mls/hr IV Q4H TRISH. Last Admin: 12/07/18 14:57 Dose: 200 mls/hr. Lactated Ringer's (Ringers, Lactated) 1,000 mls @ 100 mls/hr IV ASDIRECTED TRISH. Last Admin: 12/07/18 18: 11 Dose: 100 mls/hr. Oxytocin/Lactated Ringer's (Pitocin In Lr 10 Units/1,000 Ml) 10 unit in 1,000 mls @ 500 mls/hr IV .CONTINUOUS TRISH. Oxytocin/Lactated Ringer's (Pitocin In Lr 10 Units/1,000 Ml) 10 unit in 1,000 mls @ 12 mls/hr IV TITRATE TRISH; Protocol. Last Titration: 12/07/18 16:22 Dose: 7 munits/min, 42 mls/hr. Phenylephrine HCl 1 mg/ Sodium (Chloride) 10.1 mls @ 1 mls/sec IV TITRATE TRISH; Protocol. Stop: 12/07/18 23:00. Nalbuphine HCl (Nubain) 10 mg IVPUSH Q2H PRN. PRN Reason: pain. Ondansetron HCl (Zofran) 4 mg IVPUSH ONETIME PRN. PRN Reason: Nausea/Vomiting. Stop: 12/07/18 23:00. Sodium Chloride (Saline Flush) 10 ml FLUSH ASDIRECTED PRN. PRN Reason: Keep Vein Open. Discontinued Medications. Ampicillin Sodium 2 gm/ Sodium (Chloride) 100 mls @ 200 mls/hr IV ONETIME ONE. Stop: 12/07/18 10:04. Last Admin: 10:45 Dose: 200 mls/hr. - Exam. General: Alert, Oriented. HEENT: Pupils Equal, Mucous Membr. Moist/[place]. Neck: Supple. Lungs: Clear to Auscultation, Normal Respiratory Effort. Cardiovascular: Regular Rate, Regular Rhythm. GI/ Abdominal Exam: Normal Bowel Sounds, Soft, Non-Tender. Extremities: Normal Inspection, Normal Range of Motion, Non-Tender, No Pedal Edema, Normal Capillary Refill. Skin: Warm, Dry, Intact. Psy/Mental Status: Alert, Normal Affect, Normal Mood. - Problem List & Annotations. (1) Cord around neck, with compression, complicating labor and delivery, delivered. SNOMED Code(s): 956589536, 833110862. Code(s): O69.1XX0 - LABOR AND DELIVERY COMP BY CORD AROUND NECK, W COMPRSN, UNSP Status: Acute Current Visit: Yes. (2) First degree perineal laceration during delivery. SNOMED Code(s): 955836373. Code(s) : O70.0 - FIRST DEGREE PERINEAL LACERATION DURING DELIVERY Status: Acute Current Visit: Yes. (3) 38 weeks gestation of . SNOMED Code(s): 94415215. Code(s): Z3A.38 - 38 WEEKS GESTATION OF Status: Acute Current Visit: Yes. - Problem List Review. Problem List Initiated/Reviewed/ Updated: No. - Assessment. Assessment:: On transvaginal delivery see above note. - Plan. Plan:: Term SROM. Augment with pitocin. Anticipate unless otherwise indicated. Diagnosis: Stroke: No - Discharge Data Discharge Date: 12/09/18 Discharge Disposition: Home, Self-Care 01 Condition: Good - Discharge Diagnosis/Problem(s) (1) Cord around neck, with compression, complicating labor and delivery, delivered SNOMED Code(s): 607813743, 507430830 ICD Code: O69.1XX0 - LABOR AND DELIVERY COMP BY CORD AROUND NECK, W COMPRSN, UNSP Status: Acute Current Visit: Yes (2) First degree perineal laceration during delivery SNOMED Code(s): 231992157 ICD Code: O70.0 - FIRST DEGREE PERINEAL LACERATION DURING DELIVERY Status: Acute Current Visit: Yes (3) 38 weeks gestation of SNOMED Code(s): 28593267 ICD Code: Z3A.38 - 38 WEEKS GESTATION OF Status: Acute Current Visit: Yes - Patient Summary/Data Complications: None Consults: None Hospital Course: Uneventful - Patient Instructions Diet: Usual Diet as Tolerated Driving: Do Not Drive (I'm 6 weeks) Showering/Bathing: November Shower Notify Provider of: Fever, Increased Pain, Swelling and Redness, Drainage, Nausea and/or Vomiting - Discharge Plan *PRESCRIPTION DRUG MONITORING PROGRAM REVIEWED*: Not Applicable *COPY OF PRESCRIPTION DRUG MONITORING REPORT IN PATIENT LIBERTAD: Not Applicable Prescriptions/Med Rec: Acetaminophen 650 mg PO Q6H #50 capsule Docusate Sodium [Colace Clear] 50 mg PO BID #50 capsule Home Medications: Home Meds Vits #93/Iron Fum/FA [ Formula Tablet] 1 tab PO DAILY 12/07/18 [History] Acetaminophen 650 mg PO Q6H #50 capsule 12/09/18 [Rx] Benzocaine/Menthol [Dermoplast Pain Relief [place]] 1 spray TOP ASDIRECTED PRN canister 12/09/18 [Rx] Docusate Sodium [Colace Clear] 50 mg PO BID #50 capsule 12/09/18 [Rx] Ibuprofen [Motrin] 600 mg PO Q4H PRN tablet 12/09/18 [Rx] Lanolin [Lansinoh HPA] 1 applic TOP ASDIRECTED PRN tube 12/09/18 [Rx] Witch Silvia [Tucks] 1 pad TOP ASDIRECTED PRN pad 12/09/18 [Rx] Referrals: Ashanti Jackson MD [Primary Care Provider] - (will call monday for appointment) - Discharge Summary/Plan Comment DC Time >30 min.: No - Patient Data Vitals - Most Recent: Last Vital Signs Temp 97.5 F 12/09/18 07:55 Pulse 53 L 12/09/18 07:55 Resp 15 12/09/18 07:55 BP 108/64 12/09/18 07:55 Pulse Ox 100 05/19/19 07:55 Weight - Most Recent: 176 lb I&O - Last 24 hours: Intake & Output 12/08/18 12/09/18 12/09/18 22:59 06:59 14:59 Intake Total 120 Balance 120 Med Orders - Current: Current Medications Acetaminophen (Tylenol) 650 mg PO Q4H PRN PRN Reason: mild pain or fever Benzocaine/Menthol (Dermoplast Pain Relief [place]) 0 gm TOP ASDIRECTED PRN PRN Reason: Perineal Comfort Measure Last Admin: 12/07/18 21:19 Dose: 1 container Docusate Sodium (Colace) 100 mg PO BID PRN PRN Reason: Constipation Emollient Ointment (Lansinoh Hpa) 0 gm TOP ASDIRECTED PRN PRN Reason: Sore Nipples Last Admin: 12/07/18 21:19 Dose: 1 tube Ibuprofen (Motrin) 600 mg PO Q4H PRN PRN Reason: Mild pain or fever Last Admin: 12/09/18 02:49 Dose: 600 mg Witch Silvia (Tucks) 1 pad TOP ASDIRECTED PRN PRN Reason: Perineal Comfort Measure Last Admin: 12/07/18 21:20 Dose: 1 container Discontinued Medications Ephedrine Sulfate (Ephedrine Sulfate) 5 mg IVPUSH ASDIRECTED PRN PRN Reason: Hypotension Stop: 12/07/18 23:00 Fentanyl (Sublimaze) 100 mcg EPIDUR Q3H PRN PRN Reason: Pain Stop: 12/07/18 23:00 Last Admin: 12/07/18 18:16 Dose: 100 mcg Fentanyl/Bupivacaine HCl (Rwuivdnz-Fqgnn-Bk 2 Mcg/Ml-0.125%) 100 ml EPIDUR ASDIRECTED PRN PRN Reason: Pain Stop: 12/07/18 23:00 Last Admin: 12/07/18 18:15 Dose: 100 ml Ampicillin Sodium 2 gm/ Sodium (Chloride) 100 mls @ 200 mls/hr IV ONETIME ONE Stop: 12/07/18 10:04 Last Admin: 12/07/18 10:45 Dose: 200 mls/hr Ampicillin Sodium 1 gm/ Sodium (Chloride) 100 mls @ 200 mls/hr IV Q4H TRISH Last Admin: 12/08/18 00:30 Dose: Not Given Lactated Ringer's (Ringers, Lactated) 1,000 mls @ 100 mls/hr IV ASDIRECTED TRISH Last Admin: 12/07/18 18:11 Dose: 100 mls/hr Oxytocin/Lactated Ringer's (Pitocin In Lr 10 Units/1,000 Ml) 10 unit in 1,000 mls @ 500 mls/hr IV .CONTINUOUS TRISH Last Admin: 12/07/18 19:58 Dose: 999 mls/hr Oxytocin/Lactated Ringer's (Pitocin In Lr 10 Units/1,000 Ml) 10 unit in 1,000 mls @ 12 mls/hr IV TITRATE TRISH; Protocol Last Titration: 12/07/18 19:08 Dose: 999 mls/hr Phenylephrine HCl 1 mg/ Sodium (Chloride) 10.1 mls @ 1 mls/sec IV TITRATE TRISH; Protocol Stop: 12/07/18 23:00 Nalbuphine HCl (Nubain) 10 mg IVPUSH Q2H PRN PRN Reason: pain Ondansetron HCl (Zofran) 4 mg IVPUSH ONETIME PRN PRN Reason: Nausea/Vomiting Stop: 12/07/18 23:00 Sodium Chloride (Saline Flush) 10 ml FLUSH ASDIRECTED PRN PRN Reason: Keep Vein Open
== END 2018-12-09 13:00 | disposition home or self-care (01) | DRG 807 ==
LOC: JD.OBCHECK 09:01 → JD.OB 09:56 → OBSVTOIN 19:07
PROVIDERS: ADMIT Obstetrics & Gynecology; ATTEND Obstetrics & Gynecology
PROC: 0HQ9XZZ Repair Perineum Skin, External Approach (ICD-10-PCS; principal; 2018-12-07)
PROC: 10E0XZZ Delivery of Products of Conception, External Approach (ICD-10-PCS; principal; 2018-12-07)
PROC: 3E0R3BZ Introduction of Anesthetic Agent into Spinal Canal, Percutaneous Approach (ICD-10-PCS; 2018-12-07)
PROC: 00HU33Z Insertion of Infusion Device into Spinal Canal, Percutaneous Approach (ICD-10-PCS; 2018-12-07)
DX: O69.1XX0 Labor and delivery complicated by cord around neck, with compression, not applicable or unspecified (principal); Z37.0 Single live birth; O70.0 First degree perineal laceration during delivery; Z3A.38 38 weeks gestation of pregnancy
CPT/HCPCS: 36415; 51701; 59025; 59409; 85025; 86592; A9270-GY; J0290; J2590; J3010; J7030; J7120